=== PATIENT | female | born 1940 | race Caucasian/White ===

== ENCOUNTER → 2020-05-20 | Day surgery (SDC) | payer MEDICARE, OTHER ==
[~2020-05-20] MED LIST: ALLOPURINOL100 MG PO; AMLODIPINE BESYL5 MG PO; CALCIUM CITRATE PO; DIOVAN320 MG PO; FENOFIBRATE160 MG PO; LASIX80 MG PO; LOVAZA1 GM PO; TOPROL XL 25MG25 MG PO; VITAMIN D250 MCG PO
[2020-05-20 07:34] LABS: HCT 36.8 % (37.0-47.0); HGB 11.4 g/dl (12.5-16.0); MCH 30.4 pg (25.0-31.0); MCV 98.1 fL (78.0-100.0); MPV 10.4 fL (6.0-9.5); RBC 3.75 M/uL (4.20-5.40); RDW 13.6 % (11.5-14.0); WBC 6.4 K/uL (4.0-10.5)
[2020-05-20 07:51] LABS: ALBUMIN 3.5 g/dL (3.4-5.0); BILIRUBIN - TOTAL 0.4 mg/dL (0.2-1.0); BUN/CREAT RATIO (CALC) 36.7 RATIO; CREATININE 1.2 mg/dL (0.51-0.95); GLOBULIN (CALCULATION) 3.7 g/dL; TOTAL PROTEIN 7.2 g/dL (6.4-8.2)
== END | disposition home or self-care (01) ==
LOC: FAS 06:25
PROVIDERS: Surgery
DX: D12.0 Benign neoplasm of cecum (principal); K58.9 Irritable bowel syndrome, unspecified; K57.30 Diverticulosis of large intestine without perforation or abscess without bleeding; D64.9 Anemia, unspecified; M19.90 Unspecified osteoarthritis, unspecified site; I35.0 Nonrheumatic aortic (valve) stenosis; I12.9 Hypertensive chronic kidney disease with stage 1 through stage 4 chronic kidney disease, or unspecified chronic kidney disease; N18.30 Chronic kidney disease, stage 3 unspecified; K21.9 Gastro-esophageal reflux disease without esophagitis; E11.22 Type 2 diabetes mellitus with diabetic chronic kidney disease; M10.9 Gout, unspecified; E78.00 Pure hypercholesterolemia, unspecified; E78.5 Hyperlipidemia, unspecified; M81.0 Age-related osteoporosis without current pathological fracture; Z80.0 Family history of malignant neoplasm of digestive organs; Z86.010 Personal history of colon polyps; Z87.19 Personal history of other diseases of the digestive system; Z88.0 Allergy status to penicillin; Z88.1 Allergy status to other antibiotic agents
CPT/HCPCS: 36415; 80053; 88305; J1610; J2704; J7120

== ENCOUNTER 2021-03-06 11:00 | Day surgery (SDCO) | payer MEDICARE, OTHER ==
[~2021-03-06] VITALS: Ht 152.4 cm; Wt 71.8 kg
[2021-03-06 12:23] LABS: BASOPHIL 0.6 % (0-2); EOSINOPHIL 5.5 % (0-7); HCT 29.7 % (37.0-47.0); LYMPHOCYTE 22.6 % (15-48); MCH 31.8 pg (25.0-31.0); MCHC 33.7 g/dL (32.0-36.0); MCV 94.6 fL (78.0-100.0); MONOCYTE 10.1 % (0-12); MPV 11.5 fL (6.0-9.5); NEUTROPHIL 60.9 % (41-80); NRBC 0; PLT 239 K/uL (150-400); RBC 3.14 M/uL (4.20-5.40); RDW 14.6 % (11.5-14.0); WBC 6.6 K/uL (4.0-10.5)
[2021-03-06 12:48] LABS: LACTIC ACID 0.9 mmol/L (0.4-1.9)
[2021-03-06 13:04] LABS: ALBUMIN 3.5 g/dL (3.4-5.0); BILIRUBIN - TOTAL 0.5 mg/dL (0.2-1.0); CREATININE 2.83 mg/dL (0.51-0.95); GLOBULIN (CALCULATION) 3.3 g/dL; POTASSIUM 2.6 mmol/L (3.5-5.1); TOTAL PROTEIN 6.8 g/dL (6.4-8.2)
[2021-03-06 13:07] LABS: BILIRUBIN NEGATIVE (NEGATIVE); BLOOD NEGATIVE Ery/uL (NEGATIVE); CLARITY CLEAR (CLEAR); COLOR YELLOW (YELLOW); GLUCOSE (U) NORMAL (NORMAL); LEUKOCYTES NEGATIVE Leu/uL (NEGATIVE); NITRITE NEGATIVE (NEGATIVE); PROTEIN NEGATIVE (NEGATIVE); SPECIFIC GRAVITY 1.015 (1.001-1.030); UROBILINOGEN 0.2 mg/dL (0.2-1.0)
[2021-03-06 13:47] LABS: CORONAVIRUS 2019 SARS-COV-2 NEGATIVE (NEGATIVE); INFLUENZA A NAA NEGATIVE (NEGATIVE)
[2021-03-06] MEDS ORDERED: METOLAZONE2.5 MG PO (21:41)
[2021-03-06] MEDS ORDERED: TERAZOSIN 2 MG C2 MG PO (21:43)
[2021-03-06] MEDS ORDERED: NORVASC5 MG PO (21:44)
[2021-03-07 04:45] LABS: CREATININE 2.27 mg/dL (0.51-0.95); MAGNESIUM 3.8 mg/dL (1.8-2.4); POTASSIUM 3.4 mmol/L (3.5-5.1)
[2021-03-08 05:55] LABS: BASOPHIL 0.7 % (0-2); EOSINOPHIL 7.4 % (0-7); HGB 9.4 g/dl (12.5-16.0); LYMPHOCYTE 20.2 % (15-48); MCH 31.1 pg (25.0-31.0); MCHC 31.3 g/dL (32.0-36.0); MONOCYTE 11.6 % (0-12); NEUTROPHIL 59.6 % (41-80); NRBC 0; PLT 242 K/uL (150-400); RBC 3.02 M/uL (4.20-5.40); WBC 8.2 K/uL (4.0-10.5)
[2021-03-08 06:01] LABS: MCV 99.3 fL (78.0-100.0)
[2021-03-08 06:14] LABS: CREATININE 1.99 mg/dL (0.51-0.95); POTASSIUM 4.4 mmol/L (3.5-5.1)
[2021-03-09 09:17] LABS: CREATININE 1.87 mg/dL (0.51-0.95); POTASSIUM 5.2 mmol/L (3.5-5.1)
--- NOTE | 2021-03-09 14:37 | NUR ---
03/09/21 Sister Abby lives at [facility]. She uses a power wheelchair. SIster Abby is not interested in services because she has access to nursing services at [facility].
== END 2021-03-09 14:13 | disposition home or self-care (01) ==
LOC: FER 11:00 → FMS 14:10
PROVIDERS: Emergency Medicine; Internal Medicine; ADMIT Allergy & Immunology Allergy
DX: N17.9 Acute kidney failure, unspecified (principal); I12.9 Hypertensive chronic kidney disease with stage 1 through stage 4 chronic kidney disease, or unspecified chronic kidney disease; N18.30 Chronic kidney disease, stage 3 unspecified; I95.1 Orthostatic hypotension; E87.6 Hypokalemia; I25.10 Atherosclerotic heart disease of native coronary artery without angina pectoris; R73.03 Prediabetes; E87.1 Hypo-osmolality and hyponatremia; E86.0 Dehydration; R01.1 Cardiac murmur, unspecified; T50.2X5A Adverse effect of carbonic-anhydrase inhibitors, benzothiadiazides and other diuretics, initial encounter; Z20.822 Contact with and (suspected) exposure to COVID-19; M81.0 Age-related osteoporosis without current pathological fracture; G47.33 Obstructive sleep apnea (adult) (pediatric); Z96.653 Presence of artificial knee joint, bilateral; Z88.0 Allergy status to penicillin; Z88.1 Allergy status to other antibiotic agents
CPT/HCPCS: 36415; 71045; 80048; 80053; 81003; 83605; 83735; 84145; 84484; 85025; 87088; 93005; 97162; 97166; 97530-GP; 97535; G0378; J3475; J7030; J7120; U0002

== ENCOUNTER → 2021-06-25 | Day surgery (SDC) | payer MEDICARE, OTHER ==
[~2021-06-25] VITALS: Ht 152.4 cm; Wt 77.3 kg
[~2021-06-25] MED LIST changes: +METOLAZONE2.5 MG PO; +NORVASC5 MG PO; +TERAZOSIN 2 MG C2 MG PO
[2021-06-25 09:10] LABS: HGB 9.4 g/dl (12.5-16.0); MCHC 31.3 g/dL (32.0-36.0); MCV 95.8 fL (78.0-100.0); MPV 10.6 fL (6.0-9.5); RBC 3.13 M/uL (4.20-5.40); RDW 14.1 % (11.5-14.0); WBC 5.9 K/uL (4.0-10.5)
[2021-06-25 09:26] LABS: ALBUMIN 3.4 g/dL (3.4-5.0); BILIRUBIN - TOTAL 0.3 mg/dL (0.2-1.0); BUN/CREAT RATIO (CALC) 29.9 RATIO; CREATININE 1.47 mg/dL (0.51-0.95); GLOBULIN (CALCULATION) 3.4 g/dL; POTASSIUM 3.7 mmol/L (3.5-5.1); TOTAL PROTEIN 6.8 g/dL (6.4-8.2)
== END | disposition home or self-care (01) ==
LOC: FAS 08:21
PROVIDERS: Surgery
DX: Z12.11 Encounter for screening for malignant neoplasm of colon (principal); D12.6 Benign neoplasm of colon, unspecified; K57.30 Diverticulosis of large intestine without perforation or abscess without bleeding; K63.89 Other specified diseases of intestine; K58.9 Irritable bowel syndrome, unspecified; I25.10 Atherosclerotic heart disease of native coronary artery without angina pectoris; G47.30 Sleep apnea, unspecified; I12.9 Hypertensive chronic kidney disease with stage 1 through stage 4 chronic kidney disease, or unspecified chronic kidney disease; N18.30 Chronic kidney disease, stage 3 unspecified; Z86.010 Personal history of colon polyps
CPT/HCPCS: 36415; 80053; J1610; J2704; J7120